=== PATIENT | female | born 1995 | race American Indian/Alaskan Native ===

== ENCOUNTER 2019-08-30 23:43 | Emergency (ER) | payer SELFPAY ==
[2019-08-31] MEDS ORDERED: predniSONE 20 MG TAB PO ONE (01:02)
[2019-08-31] MEDS ORDERED: IPRATROPIUM/ALBUTEROL SULFATE 3 ML AMPUL.NEB IH ONE (01:02)
[2019-08-31] MEDS ORDERED: LORazepam 1 MG TAB PO ONE (01:04)
--- NOTE | 2019-08-31 01:06 | Emergency Department Report ---
ED Shortness of Breath HPI - General Chief Complaint: Anxiety Stated Complaint: ANXIETY Time Seen by Provider: 08/31/19 01:01 Source: patient, EMS Mode of arrival: Wheelchair Limitations: No Limitations - History of Present Illness Initial Comments: CC: "I do not feel well." HPI: This is a 23 yo female who presents with generalized malaise while at wo rk. ONce at home, she had a brief syncopal episode. She is now hyperventilating with hand cramping and diffuse numbness. She has had cough. She works as a mid level developer. She has had multiple contacts. MD Complaint: shortness of breath -: Gradual, This evening Severity: moderate Consistency: constant Improves With: oxygen Associated Symptoms: syncope ED Review of Systems ROS: Stated complaint: ANXIETY Other details as noted in HPI Comment: All other systems reviewed and negative Constitutional: chills, fever, malaise Respiratory: cough, shortness of breath Cardiovascular: denies: chest pain Gastrointestinal: denies: abdominal pain, nausea, vomiting ED Past Medical Hx - Past Medical History Previous Medical History?: Yes Additional medical history: bronchitis - Surgical History Past Surgical History?: No - Social History Smoking Status: Never Smoker Substance Use Type: Alcohol ED Physical Exam - General Limitations: No Limitations General appearance: alert, other (hyperventilating) - Head Head exam: Present: atraumatic, normocephalic - Eye Eye exam: Present: normal appearance - ENT ENT exam: Present: mucous membranes moist - Neck Neck exam: Present: normal inspection, full ROM - Respiratory Respiratory exam: Present: normal lung sounds bilaterally. Absent: respiratory distress, wheezes, rales, rhonchi, chest wall tenderness, accessory muscle use, decreased breath sounds, prolonged expiratory - Cardiovascular Cardiovascular Exam: Present: regular rate, normal rhythm, normal heart sounds. Absent: systolic murmur, diastolic murmur, rubs, gallop - GI/Abdominal GI/Abdominal exam: Present: soft, normal bowel sounds. Absent: distended, tenderness, guarding, rebound - Extremities Exam Extremities exam: Present: normal inspection - Neurological Exam Neurological exam: Present: alert, oriented X3 - Psychiatric Psychiatric exam: Present: normal affect, anxious - Skin Skin exam: Present: warm, dry, intact, normal color. Absent: rash ED Course Vital Signs 08/31/19 00:05 Temperature 99.1 F Pulse Rate 88 Respiratory 24 Rate Blood Pressure 127/84 O2 Sat by Pulse 99 Oximetry ED Medical Decision Making - Radiology Data Radiology results: image reviewed Chest radiograph 1 view: Right lower lobe atelectasis no giuseppe infiltrate no pneumothorax - Medical Decision Making 1. Hyperventilation possibly due to viral syndrome, after lorazepam DuoNeb patient was able to breathe normally 2. Syncope: No indication of arrhythmia or pulmonary embolism according to history and physical Discharged home with return precautions. She understands to self isolate if she develops fever cough Critical care attestation.: If time is entered above; I have spent that time in minutes in the direct care of this critically ill patient, excluding procedure time. ED Disposition Clinical Impression: Viral syndrome, Hyperventilation syndrome, Syncope Disposition: DC-01 TO HOME OR SELFCARE Is pt being admited?: No Does the pt Need Aspirin: No Condition: Stable Instructions: Syncope (ED) Referrals: KIP COOK MD [Staff Physician] - 3-5 Days Forms: Work/School Release Form(ED)
--- NOTE | 2019-08-31 02:54 | XRay Report ---
CHEST 1 VIEW INDICATION / CLINICAL INFORMATION: shortness of breath. COMPARISON: None available. FINDINGS: SUPPORT DEVICES: None. HEART / MEDIASTINUM: No significant abnormality. LUNGS / PLEURA: No significant pulmonary or pleural abnormality.. No pneumothorax. ADDITIONAL FINDINGS: No significant additional findings. IMPRESSION: 1. No acute findings. Signer Name: Gennaro Weiss MD Signed: 08/31/2019 2:50 AM Workstation Name: [id number]
[2019-08-31 03:33] VITALS: BP 129/79
== END 2019-08-31 03:00 | disposition home or self-care (01) ==
LOC: ED 23:43
DX: B34.9 Viral infection, unspecified (principal); F45.8 Other somatoform disorders; R05 Cough
CPT/HCPCS: 71045; 94640; 99284; J7512

== ENCOUNTER 2020-02-03 00:29 | Emergency (ER) | payer SELFPAY ==
[2020-02-03 02:54] VITALS: BP 139/68
[2020-02-03 03:31] LABS: HCG Qualitative,Urine Negative (Negative)
[2020-02-03 03:34] LABS: Basophils # (Auto) 0.1 K/mm3 (0.0-0.1); Basophils % (Auto) 0.9 % (0.0-1.8); Eosinophils % (Auto) 0.4 % (0.0-4.3); Hemoglobin 13.4 gm/dl (10.1-14.3); Lymphocytes # (Auto) 2.2 K/mm3 (1.2-5.4); Lymphocytes % (Auto) 33.1 % (13.4-35.0); Mean Corpuscular HGB Conc 34 % (30-34); Mean Corpuscular Volume 92 fl (79-97); Monocytes # (Auto) 0.5 K/mm3 (0.0-0.8); Monocytes % (Auto) 7.6 % (0.0-7.3); Platelet Count 215 K/mm3 (140-440); Red Blood Count 4.34 M/mm3 (3.65-5.03); Red Cell Distribution Width 12.5 % (13.2-15.2)
[2020-02-03 03:44] LABS: Bacteria,Urine 1+ /HPF (Negative); Bilirubin,Urine NEG (Negative); Blood,Urine NEG (Negative); Color,Urine Yellow (Yellow); Hyaline Casts,Urine 2 /LPF; Mucus,Urine 3+ /HPF
[2020-02-03 04:01] LABS: Alanine Aminotransferase 13 units/L (7-56); Albumin 4.2 g/dL (3.9-5); BUN/Creatinine Ratio 12; Blood Urea Nitrogen 11 mg/dL (7-17); Calcium 8.9 mg/dL (8.4-10.2); Hemolysis Index 37
[2020-02-03] MEDS ORDERED: AZITHROMYCIN 250 MG TAB PO ONE (05:55)
[2020-02-03] MEDS ORDERED: ONDANSETRON 4 MG ODT TAB PO ONE (05:56)
[2020-02-03] MEDS ORDERED: LIDOCAINE-MPF (1%) 10 MG/1 ML VIAL 5 ML INFILTRATI ONE (05:56)
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
== END 2020-02-03 07:50 | disposition home or self-care (01) ==
LOC: ED 00:29
DX: N73.8 Other specified female pelvic inflammatory diseases (principal)
CPT/HCPCS: 36415; 80053; 81001; 81025; 83690; 85025; 96372; 99284; J0696; Q0162

== ENCOUNTER 2020-08-18 21:17 | Emergency (ER) | payer SELFPAY ==
[2020-08-18 22:22] LABS: Bilirubin,Urine NEG (Negative); Blood,Urine NEG (Negative); Color,Urine Yellow (Yellow); Mucus,Urine 2+ /HPF
[2020-08-18 23:18] LABS: Basophils % (Auto) 0.6 % (0.0-1.8); Eosinophils % (Auto) 0.3 % (0.0-4.3); Hematocrit 40.9 % (30.3-42.9); Hemoglobin 13.7 gm/dl (10.1-14.3); Lymphocytes # (Auto) 1.6 K/mm3 (1.2-5.4); Lymphocytes % (Auto) 28.1 % (13.4-35.0); Mean Corpuscular HGB Conc 33 % (30-34); Mean Corpuscular Volume 92 fl (79-97); Monocytes # (Auto) 0.4 K/mm3 (0.0-0.8); Monocytes % (Auto) 7.6 % (0.0-7.3); Platelet Count 245 K/mm3 (140-440); Red Blood Count 4.45 M/mm3 (3.65-5.03); Red Cell Distribution Width 12.5 % (13.2-15.2)
[2020-08-18 23:38] LABS: Alanine Aminotransferase 9 units/L (7-56); Albumin 4.5 g/dL (3.9-5); BUN/Creatinine Ratio 7; Blood Urea Nitrogen 6 mg/dL (7-17); Hemolysis Index 5
[2020-08-18] MEDS ORDERED: IBUPROFEN 800 MG TAB PO ONE (23:49)
--- NOTE | 2020-08-18 23:51 | Emergency Department Report ---
ED General Adult HPI - General Chief complaint: Abdominal Pain Stated complaint: SPOTTING/CRAMPS/VOMITING Source: patient Mode of arrival: Ambulatory Limitations: No Limitations - History of Present Illness Initial comments: 24 yo AA F pt presents with complaints of lower abdominal cramping and spotting x2 weeks. Patient states she has a history of uterine fibroids and that she was placed on a control 1 year ago that prevents her from having menstrual cycles. Patient states she is unsure with the name of this control is. She states she is concerned because she has not had a menstrual cycle in 1 year. She denies any vaginal discharge, dysuria/hematuria/urinary frequency, dyspareunia, fever/chills/sweats, or stool changes. She states the cramps feel like her menstrual cycle. She does currently follow with an TAILOR'S AIDE per patient -: Sudden - Related Data Previous Rx's Medication Instructions Recorded Last Taken Type Doxycycline Hyclate [Doxycycline 100 mg PO BID 14 Days #28 tab 02/03/20 Unknown Rx Hyclate TAB] metroNIDAZOLE [Flagyl] 500 mg PO BID 7 Days #14 tab 02/03/20 Unknown Rx Ibuprofen [Motrin 800 MG tab] 800 mg PO TID PRN #20 tablet 08/18/20 Unknown Rx Allergies Allergy/AdvReac Type Severity Reaction Status Date / Time No Known Allergies Allergy Unverified 08/31/19 03:28 ED Review of Systems ROS: Stated complaint: SPOTTING/CRAMPS/VOMITING Other details as noted in HPI Constitutional: denies: chills, fever, malaise Gastrointestinal: as per HPI Genitourinary: as per HPI Neurological: denies: headache Hematological/Lymphatic: denies: easy bleeding ED Past Medical Hx - Past Medical History Previous Medical History?: No Additional medical history: bronchitis - Surgical History Past Surgical History?: No - Social History Smoking Status: Never Smoker - Medications Home Medications: Home Medications Medication Instructions Recorded Confirmed Last Taken Type Doxycycline Hyclate [Doxycycline 100 mg PO BID 14 Days #28 tab 02/03/20 Unknown Rx Hyclate TAB] metroNIDAZOLE [Flagyl] 500 mg PO BID 7 Days #14 tab 02/03/20 Unknown Rx Ibuprofen [Motrin 800 MG tab] 800 mg PO TID PRN #20 tablet 08/18/20 Unknown Rx ED Physical Exam - General Limitations: No Limitations General appearance: alert, in no apparent distress - Head Head exam: Present: atraumatic, normocephalic - Eye Eye exam: Present: normal appearance. Absent: scleral icterus - Respiratory Respiratory exam: Absent: respiratory distress - Cardiovascular Cardiovascular Exam: Present: regular rate - GI/Abdominal GI/Abdominal exam: Present: soft, normal bowel sounds. Absent: distended, tenderness, guarding, rebound, rigid - Neurological Exam Neurological exam: Present: alert, oriented X3, normal gait - Psychiatric Psychiatric exam: Present: normal affect, agitated - Skin Skin exam: Present: warm, dry, intact, normal color. Absent: rash, cyanosis, diaphoretic, pallor ED Course Vital Signs 08/18/20 08/19/20 21:38 00:08 Temperature 99.5 F Pulse Rate 84 Respiratory 16 20 Rate Blood Pressure 109/65 O2 Sat by Pulse 98 Oximetry ED Medical Decision Making - Lab Data Result diagrams: 08/18/20 22:32 08/18/20 22:32 Lab Results 08/18/20 08/18/20 08/18/20 Range/Units 22:11 22:32 22:32 WBC 5.8 (4.5-11.0) K/mm3 RBC 4.45 (3.65-5.03) M/mm3 Hgb 13.7 (10.1-14.3) gm/dl Hct 40.9 (30.3-42.9) % MCV 92 (79-97) fl MCH 31 (28-32) pg MCHC 33 (30-34) % RDW 12.5 L (13.2-15.2) % Plt Count 245 (140-440) K/mm3 Lymph % (Auto) 28.1 (13.4-35.0) % [place] % (Auto) 7.6 H (0.0-7.3) % Eos % (Auto) 0.3 (0.0-4.3) % Baso % (Auto) 0.6 (0.0-1.8) % Lymph # (Auto) 1.6 (1.2-5.4) K/mm3 [place] # (Auto) 0.4 (0.0-0.8) K/mm3 Eos # (Auto) 0.0 (0.0-0.4) K/mm3 Baso # (Auto) 0.0 (0.0-0.1) K/mm3 Seg Neutrophils % 63.4 (40.0-70.0) % Seg Neutrophils # 3.7 (1.8-7.7) K/mm3 Sodium 139 (137-145) mmol/L Potassium 4.0 (3.6-5.0) mmol/L Chloride 101.5 (98-107) mmol/L Carbon Dioxide 28 (22-30) mmol/L Anion Gap 14 mmol/L BUN 6 L (7-17) mg/dL Creatinine 0.9 (0.6-1.2) mg/dL Estimated GFR > 60 ml/min BUN/Creatinine Ratio 7 % Glucose 69 (65-100) mg/dL Calcium 9.0 (8.4-10.2) mg/dL Total Bilirubin 0.30 (0.1-1.2) mg/dL AST 14 (5-40) units/L ALT 9 (7-56) units/L Alkaline Phosphatase 51 (35-129) units/L Total Protein 7.2 (6.3-8.2) g/dL Albumin 4.5 (3.9-5) g/dL Albumin/Globulin Ratio 1.7 % Lipase 33 (13-60) units/L HCG, Quant (0-4) mIU/mL Urine Color Yellow (Yellow) Urine Turbidity Clear (Clear) Urine pH 6.0 (5.0-7.0) Ur Specific [place] 1.020 (1.003-1.030) Urine Protein 100 mg/dl (Negative) mg/dL Urine Glucose (UA) Neg (Negative) mg/dL Urine Ketones Neg (Negative) mg/dL Urine Blood Neg (Negative) Urine Nitrite Neg (Negative) Urine Bilirubin Neg (Negative) Urine Urobilinogen 4.0 (<2.0) mg/dL Ur Leukocyte Esterase Neg (Negative) Urine WBC (Auto) 2.0 (0.0-6.0) /HPF Urine RBC (Auto) 3.0 (0.0-6.0) /HPF U Epithel Cells (Auto) 1.0 (0-13.0) /HPF Urine Mucus 2+ /HPF 08/18/20 Range/Units 22:32 WBC (4.5-11.0) K/mm3 RBC (3.65-5.03) M/mm3 Hgb (10.1-14.3) gm/dl Hct (30.3-42.9) % MCV (79-97) fl MCH (28-32) pg MCHC (30-34) % RDW (13.2-15.2) % Plt Count (140-440) K/mm3 Lymph % (Auto) (13.4-35.0) % [place] % (Auto) (0.0-7.3) % Eos % (Auto) (0.0-4.3) % Baso % (Auto) (0.0-1.8) % Lymph # (Auto) (1.2-5.4) K/mm3 [place] # (Auto) (0.0-0.8) K/mm3 Eos # (Auto) (0.0-0.4) K/mm3 Baso # (Auto) (0.0-0.1) K/mm3 Seg Neutrophils % (40.0-70.0) % Seg Neutrophils # (1.8-7.7) K/mm3 Sodium (137-145) mmol/L Potassium (3.6-5.0) mmol/L Chloride (98-107) mmol/L Carbon Dioxide (22-30) mmol/L Anion Gap mmol/L BUN (7-17) mg/dL Creatinine (0.6-1.2) mg/dL Estimated GFR ml/min BUN/Creatinine Ratio % Glucose (65-100) mg/dL Calcium (8.4-10.2) mg/dL Total Bilirubin (0.1-1.2) mg/dL AST (5-40) units/L ALT (7-56) units/L Alkaline Phosphatase (35-129) units/L Total Protein (6.3-8.2) g/dL Albumin (3.9-5) g/dL Albumin/Globulin Ratio % Lipase (13-60) units/L HCG, Quant < 2 (0-4) mIU/mL Urine Color (Yellow) Urine Turbidity (Clear) Urine pH (5.0-7.0) Ur Specific [place] (1.003-1.030) Urine Protein (Negative) mg/dL Urine Glucose (UA) (Negative) mg/dL Urine Ketones (Negative) mg/dL Urine Blood (Negative) Urine Nitrite (Negative) Urine Bilirubin (Negative) Urine Urobilinogen (<2.0) mg/dL Ur Leukocyte Esterase (Negative) Urine WBC (Auto) (0.0-6.0) /HPF Urine RBC (Auto) (0.0-6.0) /HPF U Epithel Cells (Auto) (0-13.0) /HPF Urine Mucus /HPF - Medical Decision Making 24 yo AA F pt presents with complaints of lower abdominal cramping and spotting x2 weeks. Patient states she has a history of uterine fibroids and that she was placed on a control 1 year ago that prevents her from having menstrual cycles. Patient states she is unsure with the name of this control is. She states she is concerned because she has not had a menstrual cycle in 1 year. She denies any vaginal discharge, dysuria/hematuria/urinary frequency, dyspareunia, fever/chills/sweats, or stool changes. She states the cramps feel like her menstrual cycle. She does currently follow with an TAILOR'S AIDE per patient No significant abdominal tenderness noted on exam. CBC, CMP, UA are within normal limits. No infection noted on UA. Patient is negative for . Vitals are normal and she is well-appearing. Discussed need for follow-up with TAILOR'S AIDE. Patient very angry and agitated. Patient reassured that her labs, vitals, and exam do not suggest any emergency condition here today and discussed importance of follow-up with her TAILOR'S AIDE within the next week. Patient is stable for discharge home. Strict return precautions were discussed in great detail with patient who verbalizes understanding. Critical care attestation.: If time is entered above; I have spent that time in minutes in the direct care of this critically ill patient, excluding procedure time. ED Disposition Clinical Impression: Abnormal vaginal bleeding Disposition: DC-01 TO HOME OR SELFCARE Is pt being admited?: No Condition: Stable Instructions: Abnormal Uterine Bleeding, Abdominal Pain (ED) Additional Instructions: Please follow up with your OBGYN within 3-5 days for further evaluation and treatment Prescriptions: Ibuprofen [Motrin 800 MG tab] 800 mg PO TID PRN #20 tablet PRN Reason: pain Referrals: PRIMARY CARE,MD [Primary Care Provider] - 3-5 Days Forms: Work/School Release Form(ED)
[2020-08-19 07:57] VITALS: BP 122/70
== END 2020-08-19 01:00 | disposition home or self-care (01) ==
LOC: ED 21:17
DX: N93.9 Abnormal uterine and vaginal bleeding, unspecified (principal); Z79.899 Other long term (current) drug therapy
CPT/HCPCS: 36415; 80053; 81001; 83690; 84702; 85025

== ENCOUNTER 2020-09-01 23:52 | Emergency (ER) | payer SELFPAY ==
[2020-09-02 00:26] VITALS: BP 103/54
[2020-09-02] MEDS ORDERED: IBUPROFEN 600 MG TAB PO ONE ×2 (00:27→03:00)
[2020-09-02] MEDS ORDERED: ACETAMINOPHEN 500 MG TAB PO ONE ×2 (00:29→03:00)
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
== END 2020-09-02 03:35 | disposition home or self-care (01) ==
LOC: ED 23:52
DX: S43.402A Unspecified sprain of left shoulder joint, initial encounter (principal); S00.83XA Contusion of other part of head, initial encounter; M62.830 Muscle spasm of back; M62.838 Other muscle spasm; Z79.899 Other long term (current) drug therapy; V49.49XA Driver injured in collision with other motor vehicles in traffic accident, initial encounter; Y92.410 Unspecified street and highway as the place of occurrence of the external cause; Y93.89 Activity, other specified; Y99.8 Other external cause status
CPT/HCPCS: 70450; 70486; 72072; 72125

== ENCOUNTER 2020-10-15 05:19 | Emergency (ER) | payer SELFPAY ==
[2020-10-15] MEDS ORDERED: KETOROLAC 30 MG/1 ML INJ IV ONE (08:13)
[2020-10-15] MEDS ORDERED: SODIUM CHLORIDE 0.9% 1000 ML 1,000 ML IV ONE (08:13)
[2020-10-15] MEDS ORDERED: ONDANSETRON 4 MG/2 ML INJ IV ONE (08:13)
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
[2020-10-15 09:10] LABS: Alanine Aminotransferase 11 units/L (7-56); Albumin 4.7 g/dL (3.9-5); BUN/Creatinine Ratio 12; Blood Urea Nitrogen 11 mg/dL (7-17); Calcium 9.3 mg/dL (8.4-10.2); Hemolysis Index 20
[2020-10-15 09:44] LABS: Basophils # (Auto) 0.1 K/mm3 (0.0-0.1); Basophils % (Auto) 0.8 % (0.0-1.8); Eosinophils % (Auto) 0.4 % (0.0-4.3); Hematocrit 39.7 % (30.3-42.9); Hemoglobin 13.4 gm/dl (10.1-14.3); Lymphocytes # (Auto) 3.2 K/mm3 (1.2-5.4); Lymphocytes % (Auto) 37.2 % (13.4-35.0); Mean Corpuscular HGB Conc 34 % (30-34); Mean Corpuscular Volume 91 fl (79-97); Monocytes # (Auto) 0.6 K/mm3 (0.0-0.8); Monocytes % (Auto) 7.2 % (0.0-7.3); Platelet Count 275 K/mm3 (140-440); Red Blood Count 4.36 M/mm3 (3.65-5.03); Red Cell Distribution Width 12.8 % (13.2-15.2)
[2020-10-15 10:16] LABS: Bilirubin,Urine NEG (Negative); Blood,Urine NEG (Negative); Color,Urine Yellow (Yellow); Mucus,Urine 3+ /HPF
[2020-10-15] MEDS ORDERED: AZITHROMYCIN 1 GM ORAL PWDR PACKET PO ONE (10:49)
[2020-10-15] MEDS ORDERED: LIDOCAINE-MPF (1%) 10 MG/1 ML VIAL 5 ML INFILTRATI ONE (10:49)
[2020-10-15 11:38] VITALS: BP 101/60
== END 2020-10-15 11:57 | disposition home or self-care (01) ==
LOC: ED 05:19
DX: K52.9 Noninfective gastroenteritis and colitis, unspecified (principal); N39.0 Urinary tract infection, site not specified; N76.0 Acute vaginitis; B96.89 Other specified bacterial agents as the cause of diseases classified elsewhere; Z72.89 Other problems related to lifestyle; Z79.899 Other long term (current) drug therapy
CPT/HCPCS: 36415; 80053; 81001; 83690; 84703; 85025; 87086; 87210; 87591; 96361; 96372; 96374; 96375; 99283; J0696; J1885; J2405; J7030

== ENCOUNTER 2020-11-03 00:44 | Emergency (ER) | payer SELFPAY | END 2020-11-03 00:49 | disposition left against medical advice (07) | LOC: ED 00:44 | DX: R10.9 Unspecified abdominal pain (principal); Z53.21 Procedure and treatment not carried out due to patient leaving prior to being seen by health care provider ==

== ENCOUNTER 2021-09-25 20:17 | Emergency (ER) | payer SELFPAY ==
[2021-09-26] MEDS ORDERED: MORPHINE 4 MG/1 ML INJ IV ONE (03:40)
[2021-09-26] MEDS ORDERED: ONDANSETRON 4 MG/2 ML INJ IV ONE (03:40)
[2021-09-26 03:55] LABS: Bilirubin,Urine NEG (Negative); Blood,Urine NEG (Negative); Color,Urine Yellow (Yellow); Protein,Urine <15 mg/dL mg/dL (Negative)
[2021-09-26 03:57] LABS: Mucus,Urine 2+ /HPF
[2021-09-26 04:17] LABS: Hematocrit 41.3 % (30.3-42.9); Hemoglobin 14.3 gm/dl (10.1-14.3); Mean Corpuscular HGB Conc 35 % (30-34); Mean Corpuscular Volume 91 fl (79-97); Platelet Count 249 K/mm3 (140-440); Red Blood Count 4.52 M/mm3 (3.65-5.03); Red Cell Distribution Width 13.1 % (13.2-15.2)
[2021-09-26 04:25] LABS: Alanine Aminotransferase 13 units/L (7-56); Albumin 4.4 g/dL (3.9-5); BUN/Creatinine Ratio 12; Blood Urea Nitrogen 11 mg/dL (7-17); Calcium 9.3 mg/dL (8.4-10.2); Hemolysis Index 211
--- NOTE | 2021-09-26 05:35 | Cat Scan Report ---
CT ABDOMEN AND PELVIS WITHOUT CONTRAST INDICATION / CLINICAL INFORMATION: abdominal pain. TECHNIQUE: Axial CT images were obtained through the abdomen and pelvis without IV contrast. All CT scans at this location are performed using CT dose reduction for ALARA by means of automated exposure control. COMPARISON: None available. FINDINGS: LOWER CHEST: No significant abnormality of the imaged chest. LIVER: No focal lesion. No acute findings. GALLBLADDER / BILE DUCTS: No significant abnormality. Biliary ducts grossly unremarkable. SPLEEN: No significant abnormality. PANCREAS: No significant abnormality. ADRENALS: No significant abnormality. KIDNEYS/URETERS: No stones or hydronephrosis. No solid renal lesion. STOMACH / DUODENUM / SMALL BOWEL: The stomach, duodenum, and small bowel demonstrate no significant a bnormality. No specific abnormality of the mesentery demonstrated. COLON: No significant abnormality. APPENDIX: No significant abnormality. PERITONEUM: No free air or free fluid are present within the abdomen or pelvis. LYMPH NODES: No significant adenopathy. AORTA / ARTERIES: No significant abnormality. IVC / VEINS: No significant abnormality. URINARY BLADDER: No significant abnormality. REPRODUCTIVE ORGANS: No significant abnormality. ADDITIONAL ABDOMINAL/PELVIC FINDINGS: None. SKELETAL SYSTEM: No significant abnormality. IMPRESSION: 1. No acute findings within the abdomen or pelvis. Signer Name: Enrrique Mcgrath II, MD Signed: 09/26/2021 5:30 AM Workstation Name: [id number]
[2021-09-26] MEDS ORDERED: KETOROLAC 10 MG TAB PO ONE (05:45)
--- NOTE | 2021-09-26 05:49 | Emergency Department Report ---
ED Abdominal Pain HPI - General Chief Complaint: Vaginal Bleeding Stated Complaint: SPOTTING/AB PIAN Time Seen by Provider: 09/26/21 03:27 Source: patient Mode of arrival: Ambulatory Limitations: No Limitations - History of Present Illness Initial Comments: 25-year-old black female with no past medical history presents to the emergency department for evaluation of abdominal pain and vaginal finding intermittently for the past 5 days. She states that she has also had some intermittent nausea and vomited but denies fever, diarrhea, dysuria, and vaginal discharge. She states that pain at its worst is 10 out of 10 and worse with palpation and ambulation. MD Complaint: abdominal pain -: Gradual, days(s) (5) Location: RLQ Radiation: none Migration to: no migration Severity: severe Severity scale (0 -10): 10 Quality: aching Consistency: intermittent Worsens With: movement Associated Symptoms: nausea, vomiting. denies: diarrhea, fever, chills, dysuria, hematemesis, hematochezia, melena, hematuria, anorexia, syncope - Related Data LMP (females 10-50): 2 months Previous Rx's Medication Instructions Recorded Last Taken Type Doxycycline Hyclate [Doxycycline 100 mg PO BID 14 Days #28 tab 02/03/20 Unknown Rx Hyclate TAB] metroNIDAZOLE [Flagyl] 500 mg PO BID 7 Days #14 tab 02/03/20 Unknown Rx Ibuprofen [Motrin 800 MG tab] 800 mg PO TID PRN #20 tablet 08/18/20 Unknown Rx Ibuprofen [Motrin] 800 mg PO Q8HR PRN #30 tablet 09/02/20 Unknown Rx methOCARBAMOL [Robaxin TAB] 750 mg PO Q8H PRN #21 tablet 09/02/20 Unknown Rx Ciprofloxacin HCl 500 mg PO BID #14 tablet 10/15/20 Unknown Rx Promethazine [Phenergan] 25 mg PO Q6HR PRN #20 tab 10/15/20 Unknown Rx Promethazine [Phenergan] 25 mg ID Q6HR PRN #5 supp.rect 10/15/20 Unknown Rx metroNIDAZOLE [Flagyl] 500 mg PO Q12HR #14 tab 10/15/20 Unknown Rx traMADoL [Ultram] 50 mg PO Q6HR PRN #10 tablet 10/15/20 Unknown Rx Ibuprofen [Motrin 800 MG tab] 800 mg PO Q8HR PRN #30 tablet 01/29/21 Unknown Rx Naproxen [Naprosyn] 500 mg PO BID PRN #14 tab 09/26/21 Unknown Rx Ondansetron [Zofran Odt] 4 mg PO Q8HR PRN #12 tab.rapdis 09/26/21 Unknown Rx cephALEXin [Keflex] 500 mg PO BID #14 cap 09/26/21 Unknown Rx Allergies Allergy/AdvReac Type Severity Reaction Status Date / Time No Known Allergies Allergy Verified 09/02/20 02:52 ED Review of Systems ROS: Stated complaint: SPOTTING/AB PIAN Other details as noted in HPI Comment: All other systems reviewed and negative Constitutional: denies: chills, diaphoresis, fever, malaise, weakness Respiratory: denies: shortness of breath, SOB with exertion, SOB at rest Cardiovascular: denies: chest pain, palpitations, dyspnea on exertion, orthopnea, edema, syncope, paroxysmal nocturnal dyspnea Gastrointestinal: abdominal pain, nausea, vomiting. denies: diarrhea, hematemesis, melena, hematochezia Genitourinary: denies: urgency, dysuria, frequency, hematuria, discharge Musculoskeletal: denies: back pain Neurological: denies: headache, weakness ED Past Medical Hx - Past Medical History Previous Medical History?: No Additional medical history: uterine fibroids - Surgical History Past Surgical History?: No - Social History Smoking Status: Current Some Day Smoker Substance Use Type: Alcohol - Medications Home Medications: Home Medications Medication Instructions Recorded Confirmed Last Taken Type Doxycycline Hyclate [Doxycycline 100 mg PO BID 14 Days #28 tab 02/03/20 Unknown Rx Hyclate TAB] metroNIDAZOLE [Flagyl] 500 mg PO BID 7 Days #14 tab 02/03/20 Unknown Rx Ibuprofen [Motrin 800 MG tab] 800 mg PO TID PRN #20 tablet 08/18/20 Unknown Rx Ibuprofen [Motrin] 800 mg PO Q8HR PRN #30 tablet 09/02/20 Unknown Rx methOCARBAMOL [Robaxin TAB] 750 mg PO Q8H PRN #21 tablet 09/02/20 Unknown Rx Ciprofloxacin HCl 500 mg PO BID #14 tablet 10/15/20 Unknown Rx Promethazine [Phenergan] 25 mg PO Q6HR PRN #20 tab 10/15/20 Unknown Rx Promethazine [Phenergan] 25 mg ID Q6HR PRN #5 supp.rect 10/15/20 Unknown Rx metroNIDAZOLE [Flagyl] 500 mg PO Q12HR #14 tab 10/15/20 Unknown Rx traMADoL [Ultram] 50 mg PO Q6HR PRN #10 tablet 10/15/20 Unknown Rx Ibuprofen [Motrin 800 MG tab] 800 mg PO Q8HR PRN #30 tablet 01/29/21 Unknown Rx Naproxen [Naprosyn] 500 mg PO BID PRN #14 tab 09/26/21 Unknown Rx Ondansetron [Zofran Odt] 4 mg PO Q8HR PRN #12 tab.rapdis 09/26/21 Unknown Rx cephALEXin [Keflex] 500 mg PO BID #14 cap 09/26/21 Unknown Rx ED Physical Exam - General Limitations: No Limitations General appearance: alert, in no apparent distress - Head Head exam: Present: atraumatic, normocephalic - Eye Eye exam: Present: normal appearance. Absent: conjunctival injection - Neck Neck exam: Present: normal inspection, full ROM. Absent: tenderness, lymphadenopathy - Respiratory Respiratory exam: Present: normal lung sounds bilaterally. Absent: respiratory distress, wheezes, rales, rhonchi, stridor, chest wall tenderness - Cardiovascular Cardiovascular Exam: Present: tachycardia, normal heart sounds - GI/Abdominal GI/Abdominal exam: Present: soft, tenderness (Right lower quadrant), normal bowel sounds. Absent: distended, guarding, rebound, rigid - Extremities Exam Extremities exam: Present: normal inspection, normal capillary refill. Absent: pedal edema, joint swelling, calf tenderness - Back Exam Back exam: Present: normal inspection, CVA tenderness (R), vertebral tenderness. Absent: CVA tenderness (L) - Neurological Exam Neurological exam: Present: alert, oriented X3, normal gait - Psychiatric Psychiatric exam: Present: normal affect, normal mood - Skin Skin exam: Present: warm, dry, intact, normal color ED Course Vital Signs 09/25/21 09/26/21 23:08 03:57 Temperature 98.9 F Pulse Rate 107 H Respiratory 18 16 Rate Blood Pressure 117/71 O2 Sat by Pulse 93 Oximetry ED Medical Decision Making - Lab Data Result diagrams: 09/26/21 03:54 09/26/21 03:54 - Radiology Data Radiology results: report reviewed, image reviewed CT abdomen and pelvis without contrast: FINDINGS: LOWER CHEST: No significant abnormality of the imaged chest. LIVER: No focal lesion. No acute findings. GALLBLADDER / BILE DUCTS: No significant abnormality. Biliary ducts grossly unremarkable. SPLEEN: No significant abnormality. PANCREAS: No significant abnormality. ADRENALS: No significant abnormality. KIDNEYS/URETERS: No stones or hydronephrosis. No solid renal lesion. STOMACH / DUODENUM / SMALL BOWEL: The stomach, duodenum, and small bowel demonstrate no significant abnormality. No specific abnormality of the mesentery demonstrated. COLON: No significant abnormality. APPENDIX: No significant abnormality. PERITONEUM: No free air or free fluid are present within the abdomen or pelvis. LYMPH NODES: No significant adenopathy. AORTA / ARTERIES: No significant abnormality. IVC / VEINS: No significant abnormality. URINARY BLADDER: No significant abnormality. REPRODUCTIVE ORGANS: No significant abnormality. ADDITIONAL ABDOMINAL/PELVIC FINDINGS: None. SKELETAL SYSTEM: No significant abnormality. IMPRESSION: 1. No acute findings within the abdomen or pelvis. - Medical Decision Making 25-year-old black female with no past medical history presents to the emergency department for evaluation of abdominal pain and vaginal finding intermittently for the past 5 days. She states that she has also had some intermittent nausea and vomited but denies fever, diarrhea, dysuria, and vaginal discharge. She states that pain at its worst is 10 out of 10 and worse with palpation and ambulation. Patient noted to have tenderness to right lower quadrant on exam. CMP, lipase, and CBC unremarkable. Urine positive for urinary tract infection. CT scan without any acute abnormalities noted. Patient will be treated with Keflex 500 mg p.o. twice daily for UTI and given naproxen to use as needed for pain. She is advised to take medications as prescribed and follow-up with primary care pr ovider if no improvement or worsening symptoms. She verbalizes understanding of and agreement with plan of care. Critical care attestation.: If time is entered above; I have spent that time in minutes in the direct care of this critically ill patient, excluding procedure time. ED Disposition Clinical Impression: Abdominal pain Qualifiers: Abdominal location: right lower quadrant Qualified Code(s): R10.31 - Right lower quadrant pain UTI (urinary tract infection) Qualifiers: Urinary tract infection type: acute cystitis Hematuria presence: without hematuria Qualified Code(s): N30.00 - Acute cystitis without hematuria Disposition: HOME / SELF CARE / HOMELESS Is pt being admited?: No Does the pt Need Aspirin: No Condition: Stable Instructions: Antibiotic Medicine, Adult, [id number], Urinary Tract Infection, Adult, [id number], Abdominal Pain, Adult, [id number] Additional Instructions: Take medication as prescribed. Follow-up with your primary care provider if no improvement or worsening symptoms. Return to the emergency department as needed. Prescriptions: cephALEXin [Keflex] 500 mg PO BID #14 cap Naproxen [Naprosyn] 500 mg PO BID PRN #14 tab PRN Reason: Pain, Mild (1-3) Ondansetron [Zofran Odt] 4 mg PO Q8HR PRN #12 tab.rapdis PRN Reason: Nausea And Vomiting Referrals: KIP COOK MD [Staff Physician] - 3-5 Days Forms: Work/School Release Form(ED) Time of Disposition: 05:49
[2021-09-26 07:43] VITALS: BP 111/70
== END 2021-09-26 07:42 | disposition home or self-care (01) ==
LOC: ED 20:17
DX: N39.0 Urinary tract infection, site not specified (principal); D25.9 Leiomyoma of uterus, unspecified; F17.290 Nicotine dependence, other tobacco product, uncomplicated; R10.31 Right lower quadrant pain
CPT/HCPCS: 36415; 74176; 80053; 81001; 84702; 85027; 96374; 96375; 99284; J2270; J2405

== ENCOUNTER 2021-11-24 20:02 | Emergency (ER) | payer SELFPAY ==
[2021-11-24 20:53] LABS: Hyaline Casts,Urine 1 /LPF; Mucus,Urine 1+ /HPF
[2021-11-24 21:00] LABS: Bilirubin,Urine Negative (Negative); Blood,Urine Negative (Negative); Color,Urine Yellow (Yellow); Urobilinogen,Urine < 2.0 mg/dL (<2.0)
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
[2021-11-25 00:36] VITALS: BP 139/85
== END 2021-11-25 00:47 | disposition home or self-care (01) ==
LOC: ED 20:02
DX: N76.0 Acute vaginitis (principal); F17.200 Nicotine dependence, unspecified, uncomplicated; Z72.89 Other problems related to lifestyle; Z79.899 Other long term (current) drug therapy
CPT/HCPCS: 81001; 87210; 99283

== ENCOUNTER 2021-12-10 06:13 | Emergency (ER) | payer SELFPAY ==
[2021-12-10 07:34] VITALS: BP 133/87
[2021-12-10 09:02] LABS: Hemoglobin 13.4 gm/dl (10.1-14.3); Mean Corpuscular HGB Conc 33 % (30-34); Mean Corpuscular Volume 95 fl (79-97); Red Blood Count 4.33 M/mm3 (3.65-5.03); Red Cell Distribution Width 12.8 % (13.2-15.2)
[2021-12-10 09:10] LABS: Platelet Count 252 K/mm3 (140-440)
[2021-12-10 09:24] LABS: BUN/Creatinine Ratio 9; Blood Urea Nitrogen 8 mg/dL (7-17); Calcium 8.8 mg/dL (8.4-10.2); Hemolysis Index 15
[2021-12-10 09:39] LABS: Mucus,Urine FEW /HPF
[2021-12-10 09:58] LABS: Color,Urine Straw (Yellow)
--- NOTE | 2021-12-10 12:08 | Emergency Department Report ---
ED Female HPI - General Chief complaint: Vaginal Bleeding Stated complaint: VAGINAL DISCHARGE/BLOOD CLOT Time Seen by Provider: 12/10/21 08:07 Source: patient Mode of arrival: Ambulatory Limitations: No Limitations - History of Present Illness Initial comments: 25 yo comes to ER with vag bleeding p having home test which was postiive 2 days ago. has not seen obgyn. pos dysuria. no vag d/c. not co for STD. no fever or chills. lmp she reports "5 weeks ago" Complaint: vaginal bleeding -: Sudden, hour(s) Severity scale (0 -10): 0 Quality: cramping Improves with: none Worsens with: none Are you Now?: Yes Associated Symptoms: denies other symptoms, vaginal bleeding, dysuria - Related Data Sexually active: Yes Previous Rx's Medication Instructions Recorded Last Taken Type Doxycycline Hyclate [Doxycycline 100 mg PO BID 14 Days #28 tab 02/03/20 Unknown Rx Hyclate TAB] Ibuprofen [Motrin 800 MG tab] 800 mg PO TID PRN #20 tablet 08/18/20 Unknown Rx Ibuprofen [Motrin] 800 mg PO Q8HR PRN #30 tablet 09/02/20 Unknown Rx methOCARBAMOL [Robaxin TAB] 750 mg PO Q8H PRN #21 tablet 09/02/20 Unknown Rx Ciprofloxacin HCl 500 mg PO BID #14 tablet 10/15/20 Unknown Rx Promethazine [Phenergan] 25 mg PO Q6HR PRN #20 tab 10/15/20 Unknown Rx Promethazine [Phenergan] 25 mg VA Q6HR PRN #5 supp.rect 10/15/20 Unknown Rx metroNIDAZOLE [Flagyl] 500 mg PO Q12HR #14 tab 10/15/20 Unknown Rx traMADoL [Ultram] 50 mg PO Q6HR PRN #10 tablet 10/15/20 Unknown Rx Ibuprofen [Motrin 800 MG tab] 800 mg PO Q8HR PRN #30 tablet 01/29/21 Unknown Rx Naproxen [Naprosyn] 500 mg PO BID PRN #14 tab 09/26/21 Unknown Rx Ondansetron [Zofran Odt] 4 mg PO Q8HR PRN #12 tab.rapdis 09/26/21 Unknown Rx cephALEXin [Keflex] 500 mg PO BID #14 cap 09/26/21 Unknown Rx metroNIDAZOLE [Flagyl TAB] 500 mg PO BID 7 Days #14 tab 11/24/21 Unknown Rx Sulfamethoxazole/Trimethoprim 1 each PO BID #10 tablet 12/10/21 Unknown Rx [Bactrim DS TAB] Allergies Allergy/AdvReac Type Severity Reaction Status Date / Time No Known Allergies Allergy Verified 12/10/21 07:34 ED Review of Systems ROS: Stated complaint: VAGINAL DISCHARGE/BLOOD CLOT Other details as noted in HPI Comment: All other systems reviewed and negative ED Past Medical Hx - Past Medical History Previous Medical History?: No Additional medical history: uterine fibroids - Surgical History Past Surgical History?: Yes - Family History Family history: no significant - Social History Smoking Status: Current Some Day Smoker Substance Use Type: Alcohol - Medications Home Medications: Home Medications Medication Instructions Recorded Confirmed Last Taken Type Doxycycline Hyclate [Doxycycline 100 mg PO BID 14 Days #28 tab 02/03/20 Unknown Rx Hyclate TAB] Ibuprofen [Motrin 800 MG tab] 800 mg PO TID PRN #20 tablet 08/18/20 Unknown Rx Ibuprofen [Motrin] 800 mg PO Q8HR PRN #30 tablet 09/02/20 Unknown Rx methOCARBAMOL [Robaxin TAB] 750 mg PO Q8H PRN #21 tablet 09/02/20 Unknown Rx Ciprofloxacin HCl 500 mg PO BID #14 tablet 10/15/20 Unknown Rx Promethazine [Phenergan] 25 mg PO Q6HR PRN #20 tab 10/15/20 Unknown Rx Promethazine [Phenergan] 25 mg VA Q6HR PRN #5 supp.rect 10/15/20 Unknown Rx metroNIDAZOLE [Flagyl] 500 mg PO Q12HR #14 tab 10/15/20 Unknown Rx traMADoL [Ultram] 50 mg PO Q6HR PRN #10 tablet 10/15/20 Unknown Rx Ibuprofen [Motrin 800 MG tab] 800 mg PO Q8HR PRN #30 tablet 01/29/21 Unknown Rx Naproxen [Naprosyn] 500 mg PO BID PRN #14 tab 09/26/21 Unknown Rx Ondansetron [Zofran Odt] 4 mg PO Q8HR PRN #12 tab.rapdis 09/26/21 Unknown Rx cephALEXin [Keflex] 500 mg PO BID #14 cap 09/26/21 Unknown Rx metroNIDAZOLE [Flagyl TAB] 500 mg PO BID 7 Days #14 tab 11/24/21 Unknown Rx Sulfamethoxazole/Trimethoprim 1 each PO BID #10 tablet 12/10/21 Unknown Rx [Bactrim DS TAB] ED Physical Exam - General Limitations: No Limitations General appearance: alert, in no apparent distress - Head Head exam: Present: atraumatic, normocephalic - Eye Eye exam: Present: normal appearance - ENT ENT exam: Present: mucous membranes moist - Neck Neck exam: Present: normal inspection - Respiratory Respiratory exam: Present: normal lung sounds bilaterally. Absent: respiratory distress - Cardiovascular Cardiovascular Exam: Present: regular rate, normal rhythm. Absent: systolic murmur, diastolic murmur, rubs, gallop - GI/Abdominal GI/Abdominal exam: Present: soft, normal bowel sounds - Extremities Exam Extremities exam: Present: normal inspection - Back Exam Back exam: Present: normal inspection - Neurological Exam Neurological exam: Present: alert, oriented X3 - Psychiatric Psychiatric exam: Present: normal affect, normal mood - Skin Skin exam: Present: warm, dry, intact, normal color. Absent: rash ED Course Vital Signs 12/10/21 07:29 Temperature 98.2 F Pulse Rate 84 Respiratory 16 Rate Blood Pressure 133/87 [Right] O2 Sat by Pulse 98 Oximetry ED Medical Decision Making - Lab Data Result diagrams: 12/10/21 08:24 12/10/21 08:24 - Medical Decision Making Lab Results 12/10/21 12/10/21 12/10/21 Range/Units 08:24 08:24 08:24 WBC 3.9 L (4.5-11.0) K/mm3 RBC 4.33 (3.65-5.03) M/mm3 Hgb 13.4 (10.1-14.3) gm/dl Hct 41.0 (30.3-42.9) % MCV 95 (79-97) fl MCH 31 (28-32) pg MCHC 33 (30-34) % RDW 12.8 L (13.2-15.2) % Plt Count 252 (140-440) K/mm3 Sodium 140 (137-145) mmol/L Potassium 4.7 (3.6-5.0) mmol/L Chloride 104.8 (98-107) mmol/L Carbon Dioxide 25 (22-30) mmol/L Anion Gap 15 mmol/L BUN 8 (7-17) mg/dL Creatinine 0.9 (0.6-1.2) mg/dL Estimated GFR > 60 ml/min BUN/Creatinine Ratio 9 % Glucose 94 (65-100) mg/dL Calcium 8.8 (8.4-10.2) mg/dL HCG, Quant (0-4) mIU/mL Urine Color (Yellow) Urine Turbidity (Clear) Specific [place] (Man) (1.003-1.030) Ur Protein (Man) (Negative) mg/dL Ur Ketones (Man) (Negative) Ur Nitrite (Man) (Negative) Ur Reducing Substances Urine Bilirubin (Man) (Negative) Urine Ictotest Leukocyte Esterase (Man) (Negative) Urine WBC (Auto) (0.0-6.0) /HPF Urine RBC (Auto) (0.0-6.0) /HPF U Epithel Cells (Auto) (0-13.0) /HPF Urine RBC (Manual) (Negative) Urine Mucus /HPF Blood Type B POSITIVE Ord Rhogam Gestat Weeks Rh pos WEEKS 12/10/21 12/10/21 Range/Units 09:05 11:54 WBC (4.5-11.0) K/mm3 RBC (3.65-5.03) M/mm3 Hgb (10.1-14.3) gm/dl Hct (30.3-42.9) % MCV (79-97) fl MCH (28-32) pg MCHC (30-34) % RDW (13.2-15.2) % Plt Count (140-440) K/mm3 Sodium (137-145) mmol/L Potassium (3.6-5.0) mmol/L Chloride (98-107) mmol/L Carbon Dioxide (22-30) mmol/L Anion Gap mmol/L BUN (7-17) mg/dL Creatinine (0.6-1.2) mg/dL Estimated GFR ml/min BUN/Creatinine Ratio % Glucose (65-100) mg/dL Calcium (8.4-10.2) mg/dL HCG, Quant < 2 (0-4) mIU/mL Urine Color Straw (Yellow) Urine Turbidity Clear (Clear) Specific [place] (Man) 1.020 (1.003-1.030) Ur Protein (Man) Negative (Negative) mg/dL Ur Ketones (Man) Negative (Negative) Ur Nitrite (Man) Negative (Negative) Ur Reducing Substances Not Reportable Urine Bilirubin (Man) Negative (Negative) Urine Ictotest Not Reportable Leukocyte Esterase (Man) Negative (Negative) Urine WBC (Auto) 7.0 H (0.0-6.0) /HPF Urine RBC (Auto) 2.0 (0.0-6.0) /HPF U Epithel Cells (Auto) 5.0 (0-13.0) /HPF Urine RBC (Manual) 2+ (Negative) Urine Mucus Few /HPF Blood Type Ord Rhogam Gestat Weeks WEEKS Vital Signs 12/10/21 07:29 Temperature 98.2 F Pulse Rate 84 Respiratory 16 Rate Blood Pressure 133/87 [Right] O2 Sat by Pulse 98 Oximetry labs noted ua noted will treat for UTI negative dc home with dc plan of care including diet, meds, activity and follow up. - Differential Diagnosis ro preg Critical care attestation.: If time is entered above; I have spent that time in minutes in the direct care of this critically ill patient, excluding procedure time. ED Disposition Clinical Impression: UTI (urinary tract infection) Disposition: 01 HOME / SELF CARE / HOMELESS Is pt being admited?: No Does the pt Need Aspirin: No Condition: Stable Instructions: Urinary Tract Infection, Adult Additional Instructions: STAY WELL HYDRATED MED ORDERED TODAY MOTRIN OR TYLENOL FOR PAIN FOLLOW UP WITH PCP and obgyn NEXT WEEK REFERRAL BELOW Prescriptions: Sulfamethoxazole/Trimethoprim [Bactrim DS TAB] 1 each PO BID #10 tablet Referrals: KIP COOK MD [Primary Care Provider] - 3-5 Days Forms: Work/School Release Form(ED) Time of Disposition: 14:19
== END 2021-12-10 14:16 | disposition home or self-care (01) ==
LOC: ED 06:13
DX: N39.0 Urinary tract infection, site not specified (principal); N89.8 Other specified noninflammatory disorders of vagina; F17.200 Nicotine dependence, unspecified, uncomplicated; Z72.89 Other problems related to lifestyle; Z79.899 Other long term (current) drug therapy
CPT/HCPCS: 36415; 80048; 81001; 84702; 85027; 86900; 86901; 99283